=== PATIENT | female | born 1945 | race Caucasian/White ===

== ENCOUNTER → 2023-06-11 17:23 | Outpatient (REF) | payer MEDICARE, OTHER, SELFPAY ==
[2023-06-12 09:32] LABS: Glycohemoglobin (HgbA1c) 6.7 % (4.0-5.6)
== END ==
LOC: OLABN 17:23
PROVIDERS: ATTENDING PHYSICIAN Student in an Organized Health Care Education/Training Program
DX: Z51.81 Encounter for therapeutic drug level monitoring (principal); Z79.84 Long term (current) use of oral hypoglycemic drugs
CPT/HCPCS: 36415; 83036